=== PATIENT | female | born 1985 | race Caucasian/White ===

== ENCOUNTER 2018-12-31 09:31 | Emergency (ER) | payer OTHER ==
--- NOTE | 2018-12-31 09:47 | UC ---
Complaint Female HPI - HPI Summary HPI Summary: 33-year-old healthy female with complaint of minimal spotting on toilet tissue this morning. The patient and her speak Palauan but as far as I could understand she was approximately 1 year ago and had a miscarriage. She thinks and hopes she is again. She is having no abdominal discomfort and no significant vaginal bleeding except that she reported to me. - History Of Current Complaint Stated Complaint: BLOOD IN URINE Time Seen by Provider: 12/31/18 09:43 - Allergies/Home Medications Allergies/Adverse Reactions: Allergies Allergy/AdvReac Type Severity Reaction Status Date / Time No Known Allergies Allergy Verified 12/31/18 10:13 PMH/Surg Hx/FS Hx/Imm Hx - Additional Past Medical History Additional PMH: one year ago, suffered miscarriage. apparently low beta HCG. Previously Healthy: Yes Review of Systems All Other Systems Reviewed And Are Negative: Yes Constitutional: Positive: Negative Skin: Positive: Negative Eyes: Positive: Negative ENT: Positive: Negative Respiratory: Positive: Negative Cardiovascular: Positive: Negative Gastrointestinal: Positive: Negative Genitourinary: Positive: Negative Motor: Positive: Negative Neurovascular: Positive: Negative Musculoskeletal: Positive: Negative Neurological: Positive: Negative Psychological: Positive: Negative Is Patient Immunocompromised?: No Physical Exam - Summary Physical Exam Summary: . Triage Information Reviewed: Yes Appearance: Well-Appearing Eye Exam: Normal ENT Exam: Normal ENT: Positive: Normal ENT inspection Dental Exam: Normal Neck exam: Normal Neck: Positive: 1 Respiratory Exam: Normal Respiratory: Positive: Chest non-tender, Lungs clear, Normal breath sounds Cardiovascular Exam: Normal Cardiovascular: Positive: RRR, No Murmur, Pulses Normal Abdominal Exam: Normal Abdomen Description: Positive: Nontender, No Organomegaly, Soft, Other: - pelvic : deferred. Negative: CVA Tenderness (R), CVA Tenderness (L), Distended, Guarding, McBurney's Point Tenderness, Peritoneal Signs Musculoskeletal Exam: Normal Neurological Exam: Normal Psychological Exam: Normal Skin Exam: Normal Complaint Female Dx - Course Course Of Treatment: 33-year-old healthy female with complaint of minimal spotting on toilet tissue this morning. The patient and her speak mostly Palauan but as far as I could understand she was approximately 1 year ago and had a miscarriage. She thinks and hopes she is again. She is having no abdominal discomfort and no significant vaginal bleeding except that she reported to me. Her urine is positive; I have drawn a serum B HCG and RH. She will rest and call robotics engineer, Dr. Ann, in two days. - Differential Dx/Diagnosis Differential Diagnosis/HQI/PQRI: Ovarian Cyst, Urinary Tract Infection, Other - threatened miscarriage Provider Diagnosis: Miscarriage, threatened, early Discharge - Sign-Out/Discharge Documenting (check all that apply): Patient Departure All imaging exams completed and their final reports reviewed: No Studies - Discharge Plan Condition: Stable Disposition: HOME Patient Education Materials: Threatened Miscarriage (ED) Referrals: No Primary Care Phys,NOPCP [Primary Care Provider] - Additional Instructions: WE DISCUSSED: PLEASE SEEK CARE AT THE EMERGENCY DEPARTMENT IF SYMPTOMS WORSEN OR IF NEW SYMPTOMS DEVELOP. FOLLOW UP WITH YOUR PRIMARY CARE PHYSICIAN IF CONDITION CONTINUES BEYOND 3 DAYS WITHOUT IMPROVEMENT. YOUR DIAGNOSIS IS: THREATENED MISCARRIAGE, EARLY IN OTHER INSTRUCTIONS: REST, NO SEXUAL ACTIVITY. CALL DR. ANN ON WEDNESDAY, [phone]; ELECTRICAL LABORATORY TECHNICIAN. GO TO ED FOR INCREASED PAIN OR BLEEDING. - Billing Disposition and Condition Condition: STABLE Disposition: Home
[2018-12-31 10:13] VITALS: BP 113/81
== END 2018-12-31 11:32 | disposition home or self-care (01) ==
LOC: UCEAST 09:31
DX: O20.0 Threatened abortion (principal)
CPT/HCPCS: 36415; 81003; 84702; 86900; 86901; 87086; 99201; G0463

== ENCOUNTER 2019-08-16 15:20 | Inpatient (IN) | payer OTHER ==
[2019-08-16] MEDS ORDERED: Dinoprostone* 10 MG VAG.SUPP VAGINAL ONE (15:48)
[2019-08-16] MEDS ORDERED: Lactated Ringers 1000 ML Bag* 1,000 ML IV ONE (15:48)
[2019-08-16] MEDS ORDERED: Buffered Lidocaine 1% SYRIN* 1 ML/SYRINGE INTRADERM ONE (15:48)
[2019-08-16] MEDS ORDERED: Lactated Ringers 1000 ML Bag* 1,000 ML IV SCH (16:00)
[2019-08-16 17:06] LABS: Urine Benzodiazepine Screen None Detected (None Detect); Urine Opiates Screen None Detected (None Detect)
--- NOTE | 2019-08-16 17:58 | HP ---
General Information - Reason for Visit severe acute polyhydramnios, PUPPS - General Information Maternal Age: 33 Grav: 2 Para: 0 SAB: 1 IEA: 0 Estimated Due Date: 08/28/19 Determined By: Early Ultrasound Gestational Age in Weeks/Days: 38w 2d Maternal Blood Type and Rh: B Positive - Results this Serology/RPR Result: Non-Reactive Rubella Result: Non-Immune HBsAg Result: Negative HIV Result: Negative GBS Culture Result: Negative Past Medical History Pertinent Past Medical History: Non-Contributory Pertinent Past Surgical History: See Records - D&E 03/02/2018 Pertinent Family History: See Records - M: breast cancer, family history of hemophilia A (pt carrier testing negative) - Antepartal Records Antepartal Records: Reviewed, Complicated by: - acute severe polyhydramnios, anemia, PUPPS Review of Systems Constitutional: Comfortable CV Complaint: No Respiratory: Shortness of Breath: No Gastrointestinal: Normal Bowel Movement, Nausea Genitourinary: No Dysuria, No Bleeding, No Leaking Fluid Musculoskeletal: No Epigastric Pain, Abdominal Pain, Pressure Neurological: No Headache, No Visual Changes Movement: Normal Exam Allergies/Adverse Reactions: Allergies No Known Allergies Allergy (Verified 08/16/19 16:11) T:99.3, P:93, R:16, BP: 134/71, O2:98% Lab Values - Entire Visit: Laboratory Tests 08/16/19 15:35 Urine Opiates Screen None detected Ur Barbiturates Screen None detected Ur Phencyclidine Scrn None detected Ur Amphetamines Screen None detected U Benzodiazepines Scrn None detected Urine Cocaine Screen None detected U Cannabinoids Screen None detected - Measurements Height: 5 ft 6 in Weight: 200 lb Weight in lbs: [phone] Body Mass Index (BMI): 32.3 Pre- Weight: 148 lb Weight Gained This : 52 lbs and 0 ozs - Exam Breast: Breast Exam Deferred CVA: No CVA Tenderness Extremities: Edema Heart: Normal Rhythm/Heart Sounds HEENT: No Significant Findings Lungs: Clear Bilaterally Rectal: Rectal Exam Deferred Reflexes: DTR 2+ Thyroid: No Thyromegaly - Abdominal Exam Abdomen Exam Comment: PUPPS rash, S>D - Ultrasound/Biophysical Profile Ultrasound Status: Not Done Targeted Exam Findings Estimated Weight: 8lbs 8oz Cervical Exam: 1cm Effacement: 50% Station: -1 Presenting Part: Vertex Membrane Status: Intact Bleeding/Discharge: None EFM Findings - External Monitor Findings Baseline Heart Rate: 145 External Monitor Findings: Accelerations Present, No Pattern of Variable or Late Decelerations, Variability Moderate, Baseline Stable Contractions: None Assessment/Plan - Assessment 33 y.o. , 38w2d EGA, severe acute polyhydramnios, PUPPS - Plan Plan: Cervical Ripening - Date/Time of Admission Date of Admission: 08/16/19 Time of Admission: 18:05
[2019-08-16 18:34] LABS: ABS Basophils 0.1 10^3/ul (0-0.2); ABS Eosinophils 0.4 10^3/ul (0-0.6); ABS Lymphocytes 1.4 10^3/ul (1.0-4.8); ABS Monocytes 0.8 10^3/ul (0-0.8); ABS Neutrophils 6.9 10^3/ul (1.5-7.7); Eosinophil % 3.7 %; Hematocrit 38 % (35-47); Hemoglobin 12.9 g/dL (12.0-16.0); Lymphocyte % 14.8 %; Mean Corpuscular HGB Conc 35 g/dL (31-36); Mean Corpuscular Hemoglobin 31 pg (27-31); Mean Corpuscular Volume 91 fL (80-97); Platelet Count 187 10^3/uL (150-450); Red Blood Count 4.13 10^6 /uL (3.70-4.87); Red Cell Distribution Width 17 % (10-15); White Blood Count 9.5 10^3/uL (3.5-10.8)
--- NOTE | 2019-08-17 11:29 | PN ---
Progress Note - Progress Note Date of Service: 08/17/19 SOAP: Subjective: Pt report increased pain with contractions and continued pressure. Objective: BP:129/65, P:89, R:20, cervix:3/70/high, T:98.5 FHR: 140bpm, + accels, -decels, moderate variability, contractions q 3-5min Assessment: 33 y.o. , 38w3d EGA, early labor, cat I NST, severe polyhydramnios Plan: 1) Pulled cervidil, continuous monitoring and reevalute in 2 hrs or sooner PRN 2) Claims Vice President aware of patient and progress 3) Dr. Patel aware of patient and agrees with plan.
[2019-08-17] MEDS ORDERED: ceFOXitin 2 GM IVPREMIX* 2 GM/50 ML BAG ONE (18:32)
[2019-08-17] MEDS ORDERED: Sodium Citrate/Citric Acid* 15 ML UDC ONE (18:32)
[2019-08-17] MEDS ORDERED: ceFOXitin 2 GM IVPREMIX* 2 G/50 ML BAG IVPB ONE (18:41)
[2019-08-17] MEDS ORDERED: Carboprost Tromethamine* 250 MCG INJ ONE (20:02)
[2019-08-17] MEDS ORDERED: OXYTOCIN* 10 UNITS/ML 1 ML VIAL ONE (20:48)
[2019-08-17] MEDS ORDERED: Ketorolac INJ* 30 MG/ML 1 ML VIAL ONE (20:48)
[2019-08-17] MEDS ORDERED: Morphine PF AMP (0.5MG/ML)* 5 MG/10 ML AMP ONE (20:48)
[2019-08-17] MEDS ORDERED: Ondansetron INJ* 2 MG/ML VIAL ONE (20:48)
[2019-08-17] MEDS ORDERED: DiMENhydriNATE IV* 50 MG/ML VIAL ONE (20:48)
[2019-08-17] MEDS ORDERED: Phenylephrine 40 MCG/ML SYRINGE ONE (20:48)
[2019-08-17] MEDS ORDERED: EPHEDrine (Pressors)* 50 MG/ML VIAL ONE (20:48)
[2019-08-17] MEDS ORDERED: Zolpidem TAB* 5 MG PO PRN (20:49)
[2019-08-17] MEDS ORDERED: Glycerin ADULT SUPP PR PRN (20:49)
[2019-08-17] MEDS ORDERED: Witch Hazel PAD* JAR TOPICAL PRN (20:49)
[2019-08-17] MEDS ORDERED: Dibucaine 1% 28.35 GM TUBE PR PRN (20:49)
[2019-08-17] MEDS ORDERED: Lactated Ringers 1000 ML Bag* 1,000 ML IV SCH (21:00)
[2019-08-17] MEDS ORDERED: Sodium Citrate/Citric Acid* 15 ML UDC PO ONE (21:00)
[2019-08-17] MEDS ORDERED: Naloxone* 0.4 MG/ML 1 ML VIAL IV PRN ×2 (21:01→21:04)
[2019-08-17] MEDS ORDERED: HYDROmorphone INJ1* 1 MG/ML SYRINGE IV PRN (21:01)
[2019-08-17] MEDS ORDERED: DiMENhydriNATE IV* 50 MG/ML VIAL IV PUSH PRN (21:01)
[2019-08-17] MEDS ORDERED: Acetaminophen IV 1GM/100ML * 1,000 MG/100 ML VIAL IVPB ONE (21:01)
[2019-08-17] MEDS ORDERED: Ondansetron INJ* 2 MG/ML VIAL IV PRN (21:04)
[2019-08-17] MEDS ORDERED: HYDROmorphone INJ* 0.5 MG/0.5 ML SYRINGE IV PRN (22:00)
[2019-08-17] MEDS ORDERED: Methylergonovine INJ* 0.2 MG/ML 1ML AMP ONE (22:12)
[2019-08-17] MEDS: Acetaminophen TAB* 325 MG PO PRN (23:06)
[2019-08-17] MEDS: Simethicone TAB* 80 MG TAB.CHEW PO SCH (23:06)
[2019-08-17] MEDS: Docusate CAP* 100 MG PO SCH (23:06)
[2019-08-18] MEDS: Ketorolac INJ* 30 MG/ML 1 ML VIAL IV SCH ×3 (02:02→15:18)
[2019-08-18] MEDS: Acetaminophen TAB* 325 MG PO PRN ×4 (03:54→18:26)
[2019-08-18 06:26] LABS: ABS Basophils 0.1 10^3/ul (0-0.2); ABS Eosinophils 0.3 10^3/ul (0-0.6); ABS Lymphocytes 1.4 10^3/ul (1.0-4.8); ABS Monocytes 1.2 10^3/ul (0-0.8); ABS Neutrophils 13.1 10^3/ul (1.5-7.7); Hematocrit 33 % (35-47); Hemoglobin 11.4 g/dL (12.0-16.0); Lymphocyte % 8.7 %; Mean Corpuscular HGB Conc 35 g/dL (31-36); Mean Corpuscular Hemoglobin 32 pg (27-31); Mean Corpuscular Volume 91 fL (80-97); Mean Platelet Volume 8.7 fL (7.4-10.4); Platelet Count 151 10^3/uL (150-450); Red Blood Count 3.58 10^6 /uL (3.70-4.87); Red Cell Distribution Width 17 % (10-15); White Blood Count 16.2 10^3/uL (3.5-10.8)
[2019-08-18] MEDS: Simethicone TAB* 80 MG TAB.CHEW PO SCH ×4 (08:43→21:51)
[2019-08-18] MEDS: Docusate CAP* 100 MG PO SCH ×3 (08:44→21:51)
[2019-08-18] MEDS ORDERED: Ferrous Gluconate TAB* 324 MG TAB PO SCH (09:00)
--- NOTE | 2019-08-18 10:43 | OP ---
OPERATIVE REPORT: DATE OF OPERATION: 08/17/19 DATE OF : 87 SURGEON: Don Patel MD. CANCELLATION CLERK SURGEON: Michelle Ann MD. ANESTHESIA: Spinal. PRE-OP DIAGNOSES: at 38 weeks with severe polyhydramnios, symptomatic shortness of breath, and spontaneous rupture of membranes with a transverse backup lie, in labor. POST-OP DIAGNOSES: at 38 weeks with severe polyhydramnios, symptomatic shortness of breath , and spontaneous rupture of membranes with a transverse back up lie, in labor. OPERATIVE PROCEDURE: Primary low-transverse section. ESTIMATED BLOOD LOSS: 600 cc. SPECIMENS SENT TO PATHOLOGY: Cord blood. FLUIDS: She received 1800 cc of IV crystalloid fluid. URINE OUTPUT: Clear. FINDINGS: Delivery of a male with weight of 7 pounds 11 ounces with Apgars of 9 and 9 in a tr ansverse lie back up with head on the right side. It was delivered by cephalic internal versio n during section. The placenta was grossly intact. The uterus, adnexa, bowel, and bladder were all within normal limits. There was a nuchal cord x3, reduced at the time of delivery. DESCRIPTION OF PROCEDURE: The patient was taken to the operating room where she was identified. She was placed on the operating table where a spinal anesthetic was obtained without difficulty. She wa s then placed in the supine position with a leftward tilt, prepped and draped in a normal sterile fas hion. A Pfannenstiel skin incision was made with a knife and carried through to the underlying layer of fascia. The fascia was nicked in the midline and extended laterally with curved Diego scissors. The fascia was then grasped superiorly and inferiorly with Alejandra clamps and dissected out sharply fr om the rectus muscle. The rectus muscle was in the midline bluntly. The peritoneum was id entified, grasped with pickups, and entered sharply with Metzenbaum scissors. This was then extended superiorly and inferiorly sharply. A bladder blade was inserted into the patient's abdomen. A blad cordell flap was created using Metzenbaum scissors, over which the bladder blade was then reinserted. A low-transverse uterine incision was made with a knife and extended laterally with curved Diego scissor s. Amniotic sac was ruptured. The infant's head was then grasped and delivered atraumatically. Nuc lg cord x3 was then removed. The rest of the infant's body was then delivered. The cord was clampe d and cut and the was handed off to the awaiting confectionery laboratory manager. Cord bloods were obtained. Th e placenta was removed manually. The uterus was then exteriorized and cleared of all clots and debri s using moist laparotomy sponges. The uterine incision was then closed using 0 Polysorb suture in a running locked fashion with a second imbricating layer of 0 Polysorb suture with good hemostasis note d. The uterus was then returned to the patient's abdomen. The gutters were then cleared of all clots and debris using moist laparotomy sponges. All the sponges were removed from the patient's abdomen. The peritoneum was then closed using 3-0 Polysorb suture in a running fashion. The fascia was clos ed using 0 Polysorb suture in a running fashion, and the skin was closed with 4- 0 Monocryl subcuticu lar stitch. The patient tolerated the procedure well. Sponge, lap, and needle counts were correct x 2. She was then transferred to the recovery room area in stable condition. [id number]/[facility] #: [id number]
[2019-08-18] MEDS ORDERED: oxyCODONE/Acetamin 5/325 MG* TAB PO PRN ×2 (11:28)
[2019-08-18 14:41] LABS: Cytomegalovirus IgG Antibody Positive (Negative); Toxoplasma IgG Antibody Negative (Negative); Toxoplasma IgG Antibody Index <3 IU/mL
[2019-08-18 15:32] LABS: Herpes Simplex Virus I IgG AB Positive (Negative); Herpes Simplex Virus II IgG AB Negative (Negative)
--- NOTE | 2019-08-18 17:37 | PTEDU ---
Patient Name: TOMMY AMIN TOMMY AMIN selected video: Follow Me Mum: [facility] Successful to view on 08/18/2019 at 5:35:24 PM from [id number]
[2019-08-18] MEDS: Ibuprofen TAB* 600 MG PO PRN (21:51)
[2019-08-19] MEDS: Acetaminophen TAB* 325 MG PO PRN ×3 (02:20→14:05)
[2019-08-19] MEDS: Ibuprofen TAB* 600 MG PO PRN ×3 (04:15→21:10)
[2019-08-19] MEDS: Simethicone TAB* 80 MG TAB.CHEW PO SCH ×3 (08:50→21:09)
[2019-08-19] MEDS ORDERED: Tetan/Diph/Pertus SYR(Tdap)* 0.5 ML SYR(BOOSTRIX) use SYR IM ONE ×2 (10:12→14:00)
[2019-08-19] MEDS ORDERED: Measles, Mumps,Rubella VACC* 0.5 ML/VIAL SUBCUT ONE ×2 (10:13→14:00)
[2019-08-19] MEDS: Docusate CAP* 100 MG PO SCH ×3 (12:25→21:09)
[2019-08-20] MEDS: Ibuprofen TAB* 600 MG PO PRN (05:11)
[2019-08-20 09:01] VITALS: BP 125/66
[2019-08-20] MEDS: Simethicone TAB* 80 MG TAB.CHEW PO SCH ×2 (09:14)
[2019-08-20] MEDS: Acetaminophen TAB* 325 MG PO PRN (09:14)
[2019-08-20] MEDS: Docusate CAP* 100 MG PO SCH (09:14)
[2019-08-20] MEDS ORDERED: Influenza VAC *QUAD* 2019-20* 0.5 ML SYRINGE IM ONE (11:00)
== END 2019-08-20 14:40 | disposition home or self-care (01) | DRG 540 ==
LOC: MCHOBOUT 15:20 → MCHOB 17:54
PROVIDERS: ADMIT Midwife; ATTEND Obstetrics & Gynecology
PROC: 3E033VJ Introduction of Other Hormone into Peripheral Vein, Percutaneous Approach (ICD-10-PCS; 2019-08-17)
PROC: 3E0P7VZ Introduction of Hormone into Female Reproductive, Via Natural or Artificial Opening (ICD-10-PCS; 2019-08-17)
PROC: 10D00Z1 Extraction of Products of Conception, Low, Open Approach (ICD-10-PCS; principal; 2019-08-17 19:22)
DX: O40.3XX0 Polyhydramnios, third trimester, not applicable or unspecified (principal); O99.02 Anemia complicating childbirth; D64.9 Anemia, unspecified; O32.2XX0 Maternal care for transverse and oblique lie, not applicable or unspecified; O69.81X0 Labor and delivery complicated by cord around neck, without compression, not applicable or unspecified; L29.9 Pruritus, unspecified; O26.899 Other specified pregnancy related conditions, unspecified trimester; Z3A.38 38 weeks gestation of pregnancy; Z37.0 Single live birth
CPT/HCPCS: 36415; 76815; 80307; 83036; 84112; 85025; 86644; 86695; 86696; 86762; 86777; 86850; 86900; 86901; 90686; 90707; 90715; A9270-GY; J0694; J1240; J1885; J2210; J2405; J2590